=== PATIENT | female | born 1990 | race Caucasian/White ===

== ENCOUNTER 2022-09-27 12:30 | Outpatient (CLI) ==
[~2022-09-27] VITALS: Ht 152.4 cm; Wt 115.6 kg
[2022-09-27] MEDS ORDERED: PRENTAB9 PO (12:49)
[2022-09-27] MEDS ORDERED: ASPI81CH33 PO (12:57)
[2022-09-27] MEDS ORDERED: METF-839 PO (12:58)
[2022-09-27] MEDS ORDERED: [UNRECOGNIZED DRUG - OTHER] (13:10)
[2022-09-27] MEDS ORDERED: LACTATED RINGER'S 1000 ML IV STA (13:11)
[2022-09-27] MEDS ORDERED: HOME MED LIST COMPLETE! XX SCH (13:15)
[2022-09-27 13:20] VITALS: BP 121/73
[2022-09-27 14:22] VITALS: BP 108/66
[2022-09-27 14:23] LABS: HEMATOCRIT 43.9 % (36.0-47.0); HEMOGLOBIN 14.4 g/dl (12.0-15.5); MEAN CORPUSCULAR HEMOGLOBIN 31.2 pg (27.0-33.0); MEAN CORPUSCULAR HGB CONC 32.8 g/dl (32.0-36.5); PLATELET COUNT, AUTOMATED 281 10^3/uL (150-450); RED BLOOD COUNT 4.62 10^6/uL (4.00-5.40); WHITE BLOOD COUNT 10.7 10^3/uL (4.0-10.0)
[2022-09-27] MEDS ORDERED: MAALOX 30 ML SUSP *UDC PO PRN (14:35)
[2022-09-27] MEDS: LR 1,000 ML IV SCH (14:48)
[2022-09-27 15:00] LABS: ALBUMIN 2.7 G/DL (3.2-5.2); ALKALINE PHOSPHATASE 81 U/L (46-116); ALT/SGPT 38 U/L (7.0-40); AST/SGOT 31 U/L (<34); BILIRUBIN,TOTAL 0.9 MG/DL (0.3-1.2); BLOOD UREA NITROGEN 15 MG/DL (9-23); CALCIUM LEVEL 8.8 MG/DL (8.5-10.1); CARBON DIOXIDE LEVEL 22 MMOL/L (20-31); CHLORIDE LEVEL 103 MMOL/L (98-107); GLOMERULAR FILTRATION RATE > 60.0 (>60); GLUCOSE, FASTING 97 MG/DL (60-100); POTASSIUM SERUM 4.2 MMOL/L (3.5-5.1); SODIUM LEVEL 136 MMOL/L (136-145); TOTAL PROTEIN 6.4 G/DL (5.7-8.2)
[2022-09-27] MEDS: ONDANSETRON 4MG 2ML VIAL IV SCH ×3 (15:01→22:00)
[2022-09-27] MEDS ORDERED: SERT-141 PO (15:08)
[2022-09-27 15:14] VITALS: BP 102/55
[2022-09-27 16:30] VITALS: BP 112/61
[2022-09-27] MEDS ORDERED: ACETAMINOPHEN 500 MG TAB PO ONE (16:35)
[2022-09-27] MEDS ORDERED: MULTIVITAMIN -ADULT INJECTION 10 ML, THIAMINE INJection 100 MG, FOLIC ACID 1 MG in NS 1... IV ONE (17:00)
[2022-09-27 17:57] VITALS: BP 109/64
[2022-09-27] MEDS ORDERED: PROMETHAZINE 25MG/ML 1ML VIAL IV PRN (18:15)
[2022-09-27] MEDS ORDERED: BUTORPHANOL 2 MG/ML 1ML VIAL IV PRN (18:15)
[2022-09-27 19:38] LABS: APPEARANCE, URINE TURBID (CLEAR); BACTERIA, URINE AUTO NEGATIVE (NEGATIVE); BILIRUBIN, URINE AUTO NEGATIVE (NEGATIVE); BLOOD, URINE BLOOD NEGATIVE (NEGATIVE); COLOR, URINE AMBER (YELLOW); GLUCOSE, URINE (UA) AUTO 1+ mg/dL (NEGATIVE); KETONE, URINE AUTO 2+ mg/dL (NEGATIVE); LEUKOCYTE ESTERASE, URINE AUTO NEGATIVE (NEGATIVE); MUCUS, URINE SMALL (NEGATIVE); NITRITE, URINE AUTO NEGATIVE (NEGATIVE); PROTEIN, URINE AUTO 1+ mg/dL (NEGATIVE); RBC, URINE AUTO 2 /HPF (0-3); SPECIFIC GRAVITY URINE AUTO 1.032 (1.002-1.035); SQUAMOUS EPITHELIAL CELL UR AU 2 /HPF (0-6); UROBILINOGEN, URINE AUTO 0.2 mg/dL (0.0-2.0); WBC, URINE AUTO 3 /HPF (0-3)
[2022-09-27 21:29] VITALS: BP 108/52
[2022-09-28 01:46] VITALS: BP 100/53
[2022-09-28] MEDS: ONDANSETRON 4MG 2ML VIAL IV SCH ×2 (02:00→06:00)
[2022-09-28] MEDS: LR 1,000 ML IV SCH (06:04)
[2022-09-28 06:27] VITALS: BP 91/53
[2022-09-28 07:08] LABS: HEMATOCRIT 31.6 % (36.0-47.0); MEAN CORPUSCULAR HEMOGLOBIN 31.6 pg (27.0-33.0); MEAN CORPUSCULAR HGB CONC 33.2 g/dl (32.0-36.5); MEAN CORPUSCULAR VOLUME 95.2 fl (80.0-96.0); PLATELET COUNT, AUTOMATED 212 10^3/uL (150-450); RED BLOOD COUNT 3.32 10^6/uL (4.00-5.40); WHITE BLOOD COUNT 5.7 10^3/uL (4.0-10.0)
[2022-09-28 07:11] LABS: HEMOGLOBIN 10.5 g/dl (12.0-15.5)
[2022-09-28 07:37] LABS: ALBUMIN 1.7 G/DL (3.2-5.2); ALKALINE PHOSPHATASE 52 U/L (46-116); ALT/SGPT 30 U/L (7.0-40); AST/SGOT 27 U/L (<34); BILIRUBIN,TOTAL 0.7 MG/DL (0.3-1.2); BLOOD UREA NITROGEN 8 MG/DL (9-23); CALCIUM LEVEL 7.5 MG/DL (8.5-10.1); CARBON DIOXIDE LEVEL 24 MMOL/L (20-31); CHLORIDE LEVEL 105 MMOL/L (98-107); CREATININE FOR GFR 0.51 MG/DL (0.55-1.30); GLOMERULAR FILTRATION RATE > 60.0 (>60); GLUCOSE, FASTING 100 MG/DL (60-100); POTASSIUM SERUM 3.7 MMOL/L (3.5-5.1); SODIUM LEVEL 136 MMOL/L (136-145); TOTAL PROTEIN 4.3 G/DL (5.7-8.2)
== END 2022-09-28 08:20 | disposition home or self-care (01) ==
LOC: M LDO 12:30
PROVIDERS: ATTEND Obstetrics & Gynecology Obstetrics
DX: O21.2 Late vomiting of pregnancy (principal); Z3A.31 31 weeks gestation of pregnancy; O99.213 Obesity complicating pregnancy, third trimester; E66.9 Obesity, unspecified; O09.813 Supervision of pregnancy resulting from assisted reproductive technology, third trimester; Z79.84 Long term (current) use of oral hypoglycemic drugs
CPT/HCPCS: 36415; 59025; 76815; 76819; 76820; 80053; 81001; 82731; 85027; 87081; 87086; 87635; G0463; J0595; J2405; J2550; J3411

== ENCOUNTER 2022-10-22 19:10 | Outpatient (CLI) | payer BC ==
[~2022-10-22] VITALS: Ht 154.9 cm; Wt 119.8 kg
[~2022-10-22 19:10] MED LIST: ASPI81CH33 PO; METF-839 PO; PRENTAB9 PO; SERT-141 PO; [UNRECOGNIZED DRUG - OTHER]
[2022-10-22 19:34] VITALS: BP 118/73
[2022-10-22] MEDS ORDERED: HOME MED LIST COMPLETE! XX SCH (19:50)
[2022-10-22] MEDS ORDERED: LR 1,000 ML IV ONE (20:35)
[2022-10-22] MEDS ORDERED: ONDANSETRON 4MG 2ML VIAL IV PRN (21:10)
[2022-10-22] MEDS ORDERED: LR 1,000 ML IV SCH (21:10)
[2022-10-22] MEDS ORDERED: PROMETHAZINE 25MG/ML 1ML VIAL IV PRN (21:20)
[2022-10-22 21:24] LABS: HEMATOCRIT 38.7 % (36.0-47.0); MEAN CORPUSCULAR HEMOGLOBIN 31.6 pg (27.0-33.0); MEAN CORPUSCULAR HGB CONC 33.6 g/dl (32.0-36.5); MEAN CORPUSCULAR VOLUME 94.2 fl (80.0-96.0); PLATELET COUNT, AUTOMATED 273 10^3/uL (150-450); RED BLOOD COUNT 4.11 10^6/uL (4.00-5.40)
[2022-10-22 21:28] LABS: ALBUMIN 2.4 G/DL (3.2-5.2); ALKALINE PHOSPHATASE 89 U/L (46-116); ALT/SGPT 22 U/L (7.0-40); AST/SGOT 21 U/L (<34); BILIRUBIN,TOTAL 0.9 MG/DL (0.3-1.2); BLOOD UREA NITROGEN 12 MG/DL (9-23); CALCIUM LEVEL 8.5 MG/DL (8.5-10.1); CARBON DIOXIDE LEVEL 23 MMOL/L (20-31); CHLORIDE LEVEL 103 MMOL/L (98-107); GLOMERULAR FILTRATION RATE > 60.0 (>60); GLUCOSE, FASTING 82 MG/DL (60-100); POTASSIUM SERUM 4.8 MMOL/L (3.5-5.1); SODIUM LEVEL 136 MMOL/L (136-145); TOTAL PROTEIN 5.6 G/DL (5.7-8.2)
[2022-10-22 21:29] VITALS: BP 106/64
[2022-10-23 02:07] VITALS: BP 101/53
[2022-10-23 06:43] VITALS: BP 107/59
== END 2022-10-23 08:01 | disposition home or self-care (01) ==
LOC: M LDO 19:10
PROVIDERS: ATTEND Obstetrics & Gynecology Obstetrics
DX: O60.03 Preterm labor without delivery, third trimester (principal); Z3A.34 34 weeks gestation of pregnancy; O21.2 Late vomiting of pregnancy
CPT/HCPCS: 59025; 80053; 81001; 82731; 85027; 87086; 96360; 96361; G0463; J2405

== ENCOUNTER 2022-10-28 18:59 | Observation (INO) | payer BC ==
[~2022-10-28] VITALS: Ht 154.9 cm; Wt 123.6 kg
[2022-10-28] VITALS (7 sets, daily range): BP systolic 123–164; BP diastolic 72–85
[2022-10-28] MEDS ORDERED: NOXI1TAB PO (19:23)
[2022-10-28 20:34] LABS: HEMATOCRIT 36.2 % (36.0-47.0); HEMOGLOBIN 12.4 g/dl (12.0-15.5); MEAN CORPUSCULAR HEMOGLOBIN 31.2 pg (27.0-33.0); MEAN CORPUSCULAR HGB CONC 34.3 g/dl (32.0-36.5); MEAN CORPUSCULAR VOLUME 91.2 fl (80.0-96.0); PLATELET COUNT, AUTOMATED 274 10^3/uL (150-450); RED BLOOD COUNT 3.97 10^6/uL (4.00-5.40); WHITE BLOOD COUNT 10.8 10^3/uL (4.0-10.0)
[2022-10-28] MEDS ORDERED: HOME MED LIST COMPLETE! XX SCH (20:35)
[2022-10-28 21:03] LABS: ALBUMIN 2.2 G/DL (3.2-5.2); ALKALINE PHOSPHATASE 77 U/L (46-116); ALT/SGPT 38 U/L (7.0-40); AST/SGOT 38 U/L (<34); BILIRUBIN,TOTAL 0.6 MG/DL (0.3-1.2); BLOOD UREA NITROGEN 7 MG/DL (9-23); CALCIUM LEVEL 8.4 MG/DL (8.5-10.1); CARBON DIOXIDE LEVEL 20 MMOL/L (20-31); CHLORIDE LEVEL 103 MMOL/L (98-107); CREATININE FOR GFR 0.56 MG/DL (0.55-1.30); GLOMERULAR FILTRATION RATE > 60.0 (>60); GLUCOSE, FASTING 68 MG/DL (60-100); POTASSIUM SERUM 3.9 MMOL/L (3.5-5.1); SODIUM LEVEL 134 MMOL/L (136-145); TOTAL PROTEIN 5.3 G/DL (5.7-8.2)
[2022-10-28 21:09] LABS: TOTAL PROTEIN,RANDOM URINE 43.2 MG/DL (0.0-14.0)
[2022-10-28 21:14] LABS: CREATININE,RANDOM URINE 50.7 MG/DL
[2022-10-28] MEDS: BETAMETHASONE SOLUSPAN 6MG/ML 5ML VIAL IM SCH (22:12)
[2022-10-29] VITALS (15 sets, daily range): BP systolic 101–148; BP diastolic 55–88
[2022-10-29] MEDS ORDERED: PRENATAL VITAMINS CHEWABLE TABLET PO SCH (09:00)
[2022-10-29] MEDS ORDERED: ASPIRIN 81MG ENTERIC TABLET PO SCH (09:00)
[2022-10-29] MEDS ORDERED: SERTRALINE HCL 50 MG TAB PO SCH (09:00)
[2022-10-29] MEDS: BETAMETHASONE SOLUSPAN 6MG/ML 5ML VIAL IM SCH (21:48)
== END 2022-10-29 22:07 | disposition home or self-care (01) ==
LOC: M LDO 18:59 → M LDI 21:30 → INTOOBSV 21:30
PROVIDERS: ADMIT Specialist; ATTEND Specialist
DX: O14.93 Unspecified pre-eclampsia, third trimester (principal); Z3A.35 35 weeks gestation of pregnancy
CPT/HCPCS: 36415; 59025; 76815; 76819; 76820; 80053; 82570; 84156; 85027; 86780; 86850; 86900; 86901; 87635; 96372; G0463; J0702

== ENCOUNTER 2022-11-01 16:13 | Inpatient (IN) | payer BC ==
[~2022-11-01] VITALS: Ht 154.9 cm; Wt 126.5 kg
[2022-11-01] VITALS (8 sets, daily range): BP systolic 128–141; BP diastolic 66–86
[~2022-11-01 16:13] MED LIST changes: +NOXI1TAB PO
[2022-11-01] MEDS ORDERED: HOME MED LIST COMPLETE! XX SCH (17:10)
[2022-11-01] MEDS ORDERED: CARBOPROST TROMETHAMINE 250 MCG/ML AMP IM PRN (17:35)
[2022-11-01] MEDS ORDERED: TRANEXAMIC ACID INJection 1,000 MG in NS 100 ML IV PRN (17:35)
[2022-11-01] MEDS ORDERED: OXYTOCIN DRIP 30 UNITS in IV 1 EA IV PRN (17:35)
[2022-11-01] MEDS ORDERED: LIDOCAINE 1% MDV 20ML VIAL INFIL PRN (17:35)
[2022-11-01 18:43] LABS: HEMATOCRIT 36.2 % (36.0-47.0); HEMOGLOBIN 11.9 g/dl (12.0-15.5); MEAN CORPUSCULAR HEMOGLOBIN 31.2 pg (27.0-33.0); MEAN CORPUSCULAR HGB CONC 32.9 g/dl (32.0-36.5); PLATELET COUNT, AUTOMATED 289 10^3/uL (150-450); RED BLOOD COUNT 3.81 10^6/uL (4.00-5.40); WHITE BLOOD COUNT 10.8 10^3/uL (4.0-10.0)
[2022-11-01 18:59] LABS: TOTAL PROTEIN,RANDOM URINE 27.2 MG/DL (0.0-14.0)
[2022-11-01 19:03] LABS: URIC ACID 5.6 MG/DL (3.1-7.8)
[2022-11-01 19:04] LABS: CREATININE,RANDOM URINE 62.4 MG/DL
[2022-11-01 19:05] LABS: LDH LACTATE DEHYDROGENASE 198 U/L (120-246)
[2022-11-01 19:06] LABS: ALT/SGPT 43 U/L (7.0-40); AST/SGOT 28 U/L (<34); BILIRUBIN,TOTAL 0.6 MG/DL (0.3-1.2); CREATININE FOR GFR 0.66 MG/DL (0.55-1.30); GLOMERULAR FILTRATION RATE > 60.0 (>60)
[2022-11-01] MEDS: miSOPROStol 50MCG 1/2 TABLET SL SCH ×2 (19:16→23:46)
[2022-11-02] VITALS (30 sets, daily range): BP systolic 101–193; BP diastolic 53–100
[2022-11-02] MEDS: LR 1,000 ML IV SCH ×2 (01:35→15:12)
[2022-11-02] MEDS: miSOPROStol 50MCG 1/2 TABLET SL SCH ×2 (05:36→09:49)
[2022-11-02] MEDS ORDERED: OXYTOCIN DRIP 30 UNITS in IV 1 EA IV SCH (14:30)
[2022-11-02] MEDS ORDERED: MORPHINE 10 MG/ML 1ML VIAL IV ONE (16:25)
[2022-11-02] MEDS ORDERED: PROMETHAZINE 25MG/ML 1ML VIAL IV ONE (16:25)
[2022-11-02] MEDS ORDERED: ONDANSETRON 4MG 2ML VIAL IV SCH (21:30)
[2022-11-03] VITALS (30 sets, daily range): BP systolic 81–143; BP diastolic 47–99
[2022-11-03] MEDS: LR 1,000 ML IV SCH ×4 (00:50→19:00)
[2022-11-03 01:42] LABS: HEMATOCRIT 35.4 % (36.0-47.0); HEMOGLOBIN 11.8 g/dl (12.0-15.5); MEAN CORPUSCULAR HEMOGLOBIN 31.6 pg (27.0-33.0); MEAN CORPUSCULAR HGB CONC 33.3 g/dl (32.0-36.5); MEAN CORPUSCULAR VOLUME 94.9 fl (80.0-96.0); PLATELET COUNT, AUTOMATED 268 10^3/uL (150-450); RED BLOOD COUNT 3.73 10^6/uL (4.00-5.40); WHITE BLOOD COUNT 16.3 10^3/uL (4.0-10.0)
[2022-11-03] MEDS ORDERED: diphenhydrAMINE 50MG/ML VIAL IV PRN ×2 (01:55→09:30)
[2022-11-03] MEDS ORDERED: NALOXONE INJ 0.4MG/1ML VIAL IV PRN ×3 (01:55→09:30)
[2022-11-03] MEDS ORDERED: LR 500 ML IV PRN (01:55)
[2022-11-03] MEDS ORDERED: ePHEDrine SULFATE 25 MG/5 ML(5MG/ML) SYRINGE IVP PRN (01:55)
[2022-11-03] MEDS ORDERED: ONDANSETRON 4MG 2ML VIAL IV PRN ×3 (01:55→09:30)
[2022-11-03] MEDS ORDERED: FENTANYL/ROPIVACAINE/NACL BAG 100 ML EPIDURAL SCH (01:55)
[2022-11-03] MEDS ORDERED: EPIDURAL/PCA KEYS XX PRN (01:55)
[2022-11-03] MEDS ORDERED: LACTATED RINGER'S 1000 ML IV STA (06:48)
[2022-11-03] MEDS ORDERED: ceFAZolin SOD 3 GM IV Place Holder IV ONE (06:50)
[2022-11-03] MEDS ORDERED: BICITRA 30ML SOLN UDC PO ONE (06:50)
[2022-11-03] MEDS ORDERED: AZITHROMYCIN INJ 500 MG, VIAL MATE ADAPTER 1 EACH in NS 250 ML IV ONE (06:50)
[2022-11-03] MEDS ORDERED: ceFAZolin SOD 2 GM in IV 1 EA IV ONE (06:55)
[2022-11-03] MEDS ORDERED: ceFAZolin SOD 1 GM in D5W MINI-BAG PLUS 50 ML IV ONE (06:55)
[2022-11-03] MEDS ORDERED: MORPHINE PRES-FREE INJ 10 MG/10 ML VIAL As Ordered ONE (08:15)
[2022-11-03] MEDS ORDERED: KETOROLAC 60MG 2ML VIAL As Ordered ONE (08:15)
[2022-11-03] MEDS ORDERED: ACETAMINOPHEN 1000MG 100ML IV BAG As Ordered ONE (08:15)
[2022-11-03] MEDS ORDERED: PHENYLephrine 500MCG 5ML (100MCG/ML) SYRINGE As Ordered ONE (08:15)
[2022-11-03] MEDS ORDERED: LIDOCAINE 2% W/EPINEPHRINE 20ML VIAL **PRES FREE As Ordered ONE (08:15)
[2022-11-03] MEDS ORDERED: ePHEDrine SULFATE 25 MG/5 ML(5MG/ML) SYRINGE As Ordered ONE (08:15)
[2022-11-03] MEDS ORDERED: ONDANSETRON 4MG 2ML VIAL As Ordered ONE (08:15)
[2022-11-03] MEDS ORDERED: OXYTOCIN 30UNITS IN 0.9% NaCl 500ML IV BAG As Ordered ONE ×2 (08:17→08:59)
[2022-11-03] MEDS: PRENATAL VITAMINS CHEWABLE TABLET PO SCH (09:00)
[2022-11-03] MEDS: DOCUSATE SODIUM 100MG CAPSULE PO SCH ×2 (09:00→20:56)
[2022-11-03] MEDS ORDERED: SIMETHICONE 80MG CHEW TAB PO PRN (09:10)
[2022-11-03] MEDS ORDERED: ANUSOL HC CREAM 30GM TOP PRN (09:10)
[2022-11-03] MEDS ORDERED: PERCOCET 5MG/325MG TAB PO PRN ×2 (09:10)
[2022-11-03] MEDS ORDERED: RHOGAM 300MCG (1500IU) INJ IM SCH (09:10)
[2022-11-03] MEDS ORDERED: MORPHINE 2 MG/ML 1ML VIAL IV PRN (09:10)
[2022-11-03] MEDS ORDERED: ACETAMINOPHEN 500 MG TAB PO PRN (09:10)
[2022-11-03] MEDS ORDERED: OXYTOCIN DRIP 30 UNITS in IV 1 EA IV SCH (09:10)
[2022-11-03] MEDS ORDERED: IBUP80TA PO (09:21)
[2022-11-03] MEDS ORDERED: COLA100C5 PO (09:21)
[2022-11-03] MEDS ORDERED: PERCOCET PO (09:21)
[2022-11-03] MEDS ORDERED: fentaNYL 100 MCG/2 ML INJECTION IV PRN (09:30)
[2022-11-03] MEDS ORDERED: METOCLOPRAMIDE INJ 10MG/2ML VIAL IV PRN (09:30)
[2022-11-03] MEDS ORDERED: oxyCODONE 5MG TAB PO PRN (09:30)
[2022-11-03] MEDS: SLF 3 ML SYR IV SCH ×2 (09:30→17:30)
[2022-11-03] MEDS ORDERED: HYDROMORPHONE HCL 0.5 MG/ 0.5 ML SYRINGE IV PRN (09:30)
[2022-11-03] MEDS ORDERED: **NOTE PATIENT COMMENT** MISC XX SCH (09:30)
[2022-11-03] MEDS ORDERED: LR 1,000 ML IV SCH (09:30)
[2022-11-03 09:45] LABS: HEMOGLOBIN 10.3 g/dl (12.0-15.5); MEAN CORPUSCULAR HEMOGLOBIN 30.9 pg (27.0-33.0); MEAN CORPUSCULAR HGB CONC 33.2 g/dl (32.0-36.5); MEAN CORPUSCULAR VOLUME 93.1 fl (80.0-96.0); PLATELET COUNT, AUTOMATED 259 10^3/uL (150-450); RED BLOOD COUNT 3.33 10^6/uL (4.00-5.40); WHITE BLOOD COUNT 15.4 10^3/uL (4.0-10.0)
[2022-11-03 10:05] LABS: CREATININE FOR GFR 0.59 MG/DL (0.55-1.30); GLOMERULAR FILTRATION RATE > 60.0 (>60)
[2022-11-03] MEDS: KETOROLAC 30 MG/ML 1ML VIAL IV SCH ×2 (15:29→20:56)
[2022-11-03] MEDS: ENOXAPARIN 60MG/0.6ML SYRINGE (J1650 PER 10MG) SC SCH (20:56)
[2022-11-04] MEDS: LR 1,000 ML IV SCH (01:10)
[2022-11-04] MEDS: SLF 3 ML SYR IV SCH (01:30)
[2022-11-04 02:00] VITALS: BP 112/67
[2022-11-04] MEDS: IBUPROFEN 800 MG TAB PO SCH ×3 (05:30→20:55)
[2022-11-04 06:00] VITALS: BP 109/60
[2022-11-04 07:47] LABS: HEMATOCRIT 29.1 % (36.0-47.0); HEMOGLOBIN 9.6 g/dl (12.0-15.5); MEAN CORPUSCULAR HEMOGLOBIN 31.4 pg (27.0-33.0); MEAN CORPUSCULAR VOLUME 95.1 fl (80.0-96.0); PLATELET COUNT, AUTOMATED 262 10^3/uL (150-450); RED BLOOD COUNT 3.06 10^6/uL (4.00-5.40); WHITE BLOOD COUNT 13.4 10^3/uL (4.0-10.0)
[2022-11-04] MEDS: PRENATAL VITAMINS CHEWABLE TABLET PO SCH (08:01)
[2022-11-04] MEDS: DOCUSATE SODIUM 100MG CAPSULE PO SCH ×2 (08:01→20:56)
[2022-11-04 10:00] VITALS: BP 134/85
[2022-11-04 14:00] VITALS: BP 110/63
[2022-11-04 18:05] VITALS: BP 116/72
[2022-11-04] MEDS: SERTRALINE HCL 50 MG TAB PO SCH (20:55)
[2022-11-04] MEDS: ENOXAPARIN 60MG/0.6ML SYRINGE (J1650 PER 10MG) SC SCH (20:55)
[2022-11-04 22:00] VITALS: BP 112/55
[2022-11-05 02:00] VITALS: BP 117/54
[2022-11-05] MEDS: IBUPROFEN 800 MG TAB PO SCH ×3 (05:41→21:02)
[2022-11-05 06:26] VITALS: BP 121/60
[2022-11-05] MEDS ORDERED: MEASLES,MUMPS,RUBELLA VACCINE INJ (MMR-II) SC.IMMUN ONE (09:00)
[2022-11-05] MEDS: DOCUSATE SODIUM 100MG CAPSULE PO SCH ×2 (09:52→21:02)
[2022-11-05] MEDS: PRENATAL VITAMINS CHEWABLE TABLET PO SCH (09:52)
[2022-11-05 10:00] VITALS: BP 134/67
[2022-11-05 18:00] VITALS: BP 147/72
[2022-11-05] MEDS: ENOXAPARIN 60MG/0.6ML SYRINGE (J1650 PER 10MG) SC SCH (19:56)
[2022-11-05] MEDS: SERTRALINE HCL 50 MG TAB PO SCH (21:02)
[2022-11-06] MEDS: IBUPROFEN 800 MG TAB PO SCH ×2 (05:30→14:12)
[2022-11-06 06:00] VITALS: BP 132/63
[2022-11-06] MEDS: PRENATAL VITAMINS CHEWABLE TABLET PO SCH (11:23)
[2022-11-06] MEDS: DOCUSATE SODIUM 100MG CAPSULE PO SCH (11:23)
== END 2022-11-06 14:19 | disposition home or self-care (01) | DRG 540 ==
LOC: M LDI 16:13 → M OBS 11-03 11:00
PROVIDERS: ADMIT Advanced Practice Midwife; ATTEND Obstetrics & Gynecology
PROC: 3E0P7GC Introduction of Other Therapeutic Substance into Female Reproductive, Via Natural or Artificial Opening (ICD-10-PCS; 2022-11-01)
PROC: 10D00Z1 Extraction of Products of Conception, Low, Open Approach (ICD-10-PCS; principal; 2022-11-03 07:40)
DX: O14.04 Mild to moderate pre-eclampsia, complicating childbirth (principal); Z37.0 Single live birth; Z3A.35 35 weeks gestation of pregnancy; O40.3XX0 Polyhydramnios, third trimester, not applicable or unspecified; O99.214 Obesity complicating childbirth; E66.9 Obesity, unspecified; O62.0 Primary inadequate contractions

== ENCOUNTER → 2025-04-04 | Outpatient (CLI) | payer MEDICAID ==
[~2025-04-04] MED LIST changes: +COLA100C5 PO; +IBUP80TA PO; +PERCOCET PO
[2025-04-04 10:24] LABS: PLATELET COUNT, AUTOMATED 289 10^3/uL (150-450)
[2025-04-04 10:45] LABS: GLUCOSE CHALLENGE TEST 1 HOUR 100 MG/DL (LESS THAN 140)
[2025-04-04 11:15] LABS: HIV 1&2 SCREEN NEGATIVE (NEGATIVE)
[2025-04-04 11:22] LABS: HEPATITIS C VIRUS ABY INDEX < 0.02 INDEX (<0.8)
[2025-04-04 12:04] LABS: Trichomonas vaginalis (AMP) NOT DETECTED (NEGATIVE)
[2025-04-04 12:27] LABS: GC DNA AMPLIFICATION NEGATIVE (NEGATIVE)
== END ==
LOC: M PLALAB 08:14
PROVIDERS: ATTEND Specialist
DX: Z34.82 Encounter for supervision of other normal pregnancy, second trimester (principal)

== ENCOUNTER → 2025-04-11 | Outpatient (CLI) | payer MEDICAID | LOC: M RAD 14:46 | PROVIDERS: ATTEND Specialist | DX: O09.293 Supervision of pregnancy with other poor reproductive or obstetric history, third trimester (principal); O40.3XX0 Polyhydramnios, third trimester, not applicable or unspecified; O32.1XX0 Maternal care for breech presentation, not applicable or unspecified; Z3A.29 29 weeks gestation of pregnancy ==

== ENCOUNTER → 2025-05-24 | Outpatient (CLI) | payer OTHER | LOC: M WHC 11:23 | PROVIDERS: ATTEND Specialist | DX: O40.9XX0 Polyhydramnios, unspecified trimester, not applicable or unspecified (principal) ==

== ENCOUNTER 2025-06-08 20:38 | Outpatient (CLI) | payer OTHER ==
[~2025-06-08] VITALS: Ht 154.9 cm; Wt 135.7 kg
[2025-06-08 20:54] VITALS: BP 140/90
[2025-06-12] MEDS ORDERED: COLA100C5 PO (14:40)
[2025-06-14] MEDS ORDERED: COLA100C5 PO (07:43)
[2025-06-14] MEDS ORDERED: IBUP80TA PO (07:43)
== END 2025-06-08 21:50 | disposition home or self-care (01) ==
LOC: M LDO 20:38
PROVIDERS: ATTEND Obstetrics & Gynecology
DX: O36.8130 Decreased fetal movements, third trimester, not applicable or unspecified (principal); O34.219 Maternal care for unspecified type scar from previous cesarean delivery; O40.3XX0 Polyhydramnios, third trimester, not applicable or unspecified; O09.813 Supervision of pregnancy resulting from assisted reproductive technology, third trimester; Z3A.36 36 weeks gestation of pregnancy
CPT/HCPCS: 59025; G0463